=== PATIENT | male | born 1995 | race Two or more races ===

== ENCOUNTER 2017-03-22 01:06 | Emergency (ER) | payer OTHER ==
[~2017-03-22] VITALS: Ht 177.8 cm; Wt 131.5 kg
[~2017-03-22 01:06] MED LIST: PENI500T PO
[2017-03-22 01:20] VITALS: BP 142/91
--- NOTE | 2017-03-22 01:30 | PHYS DOC ---
Past Medical History Past Medical History: No Pertinent History Past Surgical History: Appendectomy, Other Additional Past Surgical Histo: LEFT WRIST Alcohol Use: None Drug Use: None Adult General Chief Complaint Chief Complaint: LOWER BACK PAIN OR INJURY HPI HPI Patient is a 21 year old M who presents with chief on chronic lower back pain. Patient states he injured back approximately 3 years ago and has had back pain off and on. Patient states he is at work tonight and bent down to pick something up and experienced some lower back pain. Patient denies any numbness or tingling to the legs. Patient denies any urine or stool incontinence. Patient denies any recent trauma. Patient denies any saddle anesthesia. Patient has no other complaints. Pertinent exam findings: No reproducible back pain with palpation on physical exam No saddle anesthesia Normal straight leg raise bilaterally ED course: Patient was seen and examined and since the patient had no new trauma I do not believe an x-ray of the back is needed and the patient agrees I did offer the patient a shot of Toradol which she declined and would just like to go home and follow-up as PCP. MDM: After reviewing the chart, CC/HPI/PMH, physical exam, do not believe the patient has a significant back injury warranting further workup and/or admission at this time. I have a low suspicion for spinal epidural abscess or cauda equina syndrome. Offer the patient pain medication in which she declined, to follow up as PCP. Patient is stable for discharge. Additional verbal discharge instructions were provided to the patient and that if symptoms get worse or any new symptoms arise that are worrisome to the patient he is to return to the emergency room immediately Review of Systems Review of Systems GEN: Denies fevers, chills, sweats HEENT: Denies blurred vision, sore throat CV: Denies chest pain RESP: Denies shortness of air, cough GI: Denies n/v/d NEURO: Denies confusion, dizziness MSK: Lower back pain Allergies Allergies Allergies Coded Allergies Type Severity Reaction Last Updated Verified No Known Drug Allergies 12/26/15 No Physical Exam Physical Exam GEN.: No apparent distress. Alert and oriented. HEENT: Head is normocephalic, atraumatic NECK: Supple. LUNGS: CTAB. HEART: RRR, S1, S2 present. Peripheral pulses intact ABDOMEN: Soft, nontender. Positive bowel sounds. EXTREMITIES: Without any cyanosis. NEUROLOGIC: Normal speech, normal tone PSYCHIATRIC: Normal affect, normal mood. SKIN: No ulcerations Back: No central tenderness over the T and L-spine, no paraspinal tenderness over the T and L-spine, no saddle anesthesia, negative straight leg raise bilaterally, patient able stand up on tippy toes without any difficulty Current Patient Data Vital Signs Vital Signs Date Time Temp Pulse Resp B/P (MAP) Pulse Ox O2 Delivery O2 Flow Rate FiO2 03/22/17 01:20 98.5 58 20 96 Room Air 98.5 EKG EKG [] Radiology/Procedures Radiology/Procedures [] Course & Med Decision Making Course & Med Decision Making Pertinent Labs and Imaging studies reviewed. (See chart for details) [] Dragon Disclaimer Dragon Disclaimer This electronic medical record was generated, in whole or in part, using a voice recognition dictation system. Departure Departure Impression: Primary Impression: Acute exacerbation of chronic low back pain Disposition: 01 HOME, SELF-CARE Condition: STABLE Referrals: NO PCP (PCP) Patient Instructions: Back Pain, Adult Additional Instructions: Minute patient follow up with PCP in one to 2 days and possibly needs physical therapy to help with the chronic back pain JOEL SHELBY DO Mar 22, 2017 01:30
== END 2017-03-22 01:35 | disposition home or self-care (01) ==
LOC: ER 01:06
DX: G89.29 Other chronic pain (principal); M54.5 Low back pain; Z90.49 Acquired absence of other specified parts of digestive tract
CPT/HCPCS: 99281